=== PATIENT | female | born 1955 | race Caucasian/White ===

== ENCOUNTER → 2019-10-08 15:47 | Outpatient (CLI) | payer BC, SELFPAY ==
--- NOTE | ~2019-10-08 | CT_ITS ---
EXAMINATION: CT chest wo con EXAM DATE: 10/08/2019 16:12 INDICATION: Solitary pulmonary nodule. TECHNIQUE: Spiral CT of the chest without contrast. Axial, coronal and sagittal images were reviewe d. Coronal maximum intensity pixel images of chest reviewed. The dose-length product (DLP) for this examination was 228.49 mGy-cm. The exposure was tailored according to patient size (auto mA exposur e control), and iterative reconstruction (ASIR) was used as additional dose reduction technique. Comp arison is made to prior examination from 03/29/2018. FINDINGS: Previously seen pleural-based right lower lobe opacity has resolved. There is moderate emph ysema. Some linear regions of subsegmental atelectasis. There are no pleural or pericardial effusion s. Tracheobronchial tree is patent. There is no mediastinal, hilar or axillary lymphadenopathy. There is no pneumothorax. Heart normal in size. There is mild left anterior descending coronary arterial calcification, arterial sclerosis. Upper abdomen is unremarkable. There is mild to modera te thoracic spondylosis without osteoblastic or osteolytic lesions identified. IMPRESSION: 1. Resolution of previously seen right lower lobe nodule. 2. Scattered subsegmental atelectasis. 3. Moderate emphysema unchanged. Reviewed, dictated and finalized at location A.
== END ==
PROVIDERS: PCP Family Medicine; Visit Provider Nurse Practitioner Family
DX: R91.1 Solitary pulmonary nodule (principal); Z12.2 Encounter for screening for malignant neoplasm of respiratory organs; Z87.891 Personal history of nicotine dependence; J43.9 Emphysema, unspecified; R91.8 Other nonspecific abnormal finding of lung field
CPT/HCPCS: 71250

== ENCOUNTER 2020-08-13 13:04 | Outpatient (CLI) | payer BC, SELFPAY ==
[2020-08-13 13:44] LABS: Anion Gap 5 mmol/L (8-16); Blood Urea Nitrogen 16 mg/dL (7-17); Calcium 8.7 mg/dL (8.4-10.2); Carbon Dioxide 28 mmol/L (22-30); Chloride 106 mmol/L (98-107); Cholesterol 154 mg/dL (0-200); Estimated Glomerular Filt Rate > 60; Glucose 90 mg/dL (65-105); HDL Direct 57 mg/dL; Potassium 3.8 mmol/L (3.4-5.0); Sodium 139 mmol/L (137-145); Triglycerides 132 mg/dL (<150)
[2020-08-13 13:55] LABS: LDL Cholesterol Direct 55 mg/dL
== END 2020-08-13 13:05 | disposition home or self-care (01) ==
LOC: ANHLAB 13:07
PROVIDERS: PCP Family Medicine; Visit Provider Nurse Practitioner Family
DX: Z13.220 Encounter for screening for lipoid disorders (principal); Z13.1 Encounter for screening for diabetes mellitus; Z13.29 Encounter for screening for other suspected endocrine disorder
CPT/HCPCS: 36415; 80048; 80061; 84443

== ENCOUNTER → 2020-11-02 08:45 | Outpatient (CLI) | payer BC, SELFPAY ==
--- NOTE | ~2020-11-02 | XR_ITS ---
EXAMINATION: XR knee LT 3V EXAM DATE: 11/02/2020 09:11 INDICATION: M25.569 - Pain in unspecified knee, S/P Fall, oumou med knee pain. Initial encounter. TECHNIQUE: Left knee lateral, frontal, sunrise projections. Correlation is made to contralateral knee same date. FINDINGS: No evidence osteochondral defect or joint body in the left knee joint. There is mild to m oderate left knee patellofemoral and medial tibiofemoral compartment primary osteoarthritis. No siza ble joint effusion. There are no acute fractures or dislocations identified. There is no subcutaneou s gas. The soft tissue is unremarkable. There are no radiopaque foreign bodies. IMPRESSION: 1. XR knee LT 3V exam without acute osseous findings. 2. Mild to moderate osteoarthritis. Reviewed, dictated and finalized at location A.
--- NOTE | ~2020-11-02 | XR_ITS ---
EXAMINATION: XR knee RT 3V EXAM DATE: 11/02/2020 09:11 INDICATION: M25.569 - Pain in unspecified knee, s/p fall, oumou med knee pain. Initial encounter. TECHNIQUE: Three projections of the right knee, frontal, lateral and sunrise projections. Correlation is made to contralateral knee same date. FINDINGS: No evidence osteochondral defect or joint body in the right knee joint. There is mild to moderate tricompartmental primary osteoarthritis. No sizable joint effusion. There are no acute fract ures or dislocations identified. There is no subcutaneous gas. Small amount of distal femoral arter ial sclerosis. There are no radiopaque foreign bodies. IMPRESSION: 1. XR knee RT 3V exam without acute osseous findings. 2. Mild to moderate osteoarthritis. Reviewed, dictated and finalized at location A.
== END ==
PROVIDERS: PCP Family Medicine; Visit Provider Nurse Practitioner Family
DX: M17.0 Bilateral primary osteoarthritis of knee (principal)
CPT/HCPCS: 73562

== ENCOUNTER → 2022-03-01 09:51 | Outpatient (CLI) | payer MEDICARE, BC, SELFPAY ==
--- NOTE | ~2022-03-01 | XR_ITS ---
EXAMINATION: XR hip BI 2V w AP pelvis DATE: 03/01/2022 10:17 INDICATION: Unilateral primary osteoarthritis, right hip. TECHNIQUE: An anteroposterior pelvis and 2 views of each hip were obtained. COMPARISON: Right hip radiographs 06/29/2017 FINDINGS: There is lumbar levocurvature and severe spondylosis. No fracture. There is severe right hi p osteoarthritis and moderate left hip osteoarthritis. IMPRESSION: 1. Severe right hip osteoarthritis and moderate left hip osteoarthritis. Reviewed, dictated and finalized at location A.
--- NOTE | ~2022-03-01 | XR_ITS ---
EXAMINATION: XR lumbar spine min 4V DATE: 03/01/2022 10:17 INDICATION: Low back pain. TECHNIQUE: 5 views of lumbar spine were obtained. COMPARISON: None. FINDINGS: There is 7 degrees levocurvature of lumbar spine. There is 7 mm anterolisthesis of L4 on L5 . There are chronic bilateral L4 pars defects. Vertebral body heights are normal. There is severely d ecreased disc height at L4-L5 with likely interbody fusion. There is mildly decreased disc height fro m L1-L2 through L3-L4 and at L5-S1. There is severe facet joint osteoarthritis in lower lumbar spine. IMPRESSION: 1. Chronic bilateral L4 pars defects with grade 1 anterolisthesis of L4 on L5. 2. Severe lumbar spondylosis with likely interbody fusion at L4-L5. Reviewed, dictated and finalized at location A.
== END ==
PROVIDERS: PCP Family Medicine; Visit Provider Nurse Practitioner Family
DX: M47.896 Other spondylosis, lumbar region (principal); Z98.1 Arthrodesis status; M16.0 Bilateral primary osteoarthritis of hip
CPT/HCPCS: 72110; 73521

== ENCOUNTER → 2022-03-28 12:19 | Outpatient (CLI) | payer MEDICARE, BC, SELFPAY ==
--- NOTE | ~2022-03-28 | MR_ITS ---
EXAMINATION: MR hip LT wo con, MR hip RT wo con DATE: 03/28/2022 14:01 INDICATION: Left and right hip pain TECHNIQUE: 1. Magnetic resonance imaging (MRI) of the left hip was performed without intravenous contrast. Seque nces included full-field axial PD-weighted FS FSE and T1-weighted FSE, coronal of the pelvis with PD- weighted FS FSE, T2-weighted FSE and T1-weighted FSE, small field of view of the left hip with axial PD-weighted FS FSE, sagittal PD-weighted FS FSE, coronal PD-weighted FS FSE and coronal T2 weighted FSE. Additional radial T1-weighted FGR oriented orthogonal to the acetabular rim were obtained for e valuation of the labrum. 2. MRI of the right hip was performed without intravenous contrast. Sequences included small field of view of the right hip with axial PD-weighted FS FSE, sagittal PD-weighted FS FSE, coronal PD-weight ed FS FSE and coronal T2 weighted FSE. Additional radial T1-weighted FGR oriented orthogonal to the acetabular rim were obtained for evaluation of the labrum. COMPARISON: None FINDINGS: Bones/labrum/cartilage: No fracture, avascular necrosis or pathologic marrow replacing process. Mild lumbar levocurvature wit h anterior spinal fusion at L4-L5. Moderate spondylosis at remaining unfused lumbar levels. Severe os teoarthritis at the right hip with full/near full-thickness cartilage loss along much of the superior and anterosuperior aspect of the joint space where there is subarticular eburnation and edema-like s ignal change. Chronic degeneration of the right acetabular labrum with heterotopic ossicle formation replacing portions of the anterosuperior and posterosuperior labrum. 1.3 x 1.2 x 1.1 cm posterior par avertebral cyst which appears to erode portion of the posterior nonarticular cortex along the 10:00 p osition of the posterior rim of the right acetabulum. Moderate osteoarthritis at the right hip with additional partial thickness cartilage loss with superior and anterosuperior predominance where it in volves greater than 50% the cartilage thickness. There is additional scattered subarticular edema-lik e signal change superolateral and superomedial aspect of the left acetabulum There is additional scat tered subarticular edema-like signal change. Linear tears at the base of the anterior and posterior l eft acetabular labrum with degeneration of the intervening superolateral labrum. Fluid: Physiologic amount of fluid at the right hip joint space. There is a small left hip joint effusion wi th mild synovitis. Soft tissues: Normal and symmetric muscle bulk and signal in the pelvis and visualized proximal thighs. The iliopso as, gluteal and proximal hamstring tendons are normal. A few sigmoid diverticula without adjacent fro m 3 change to suggest diverticulitis. Limited evaluation of visceral organs of the pelvis is otherwis e unremarkable. No pathologically enlarged pelvic/inguinal lymphadenopathy. IMPRESSION: 1. Severe right and moderate left hip osteoarthritis with associated bilateral labral tears/degenerat ion. 2. Nonspecific small left hip joint effusion. 3. Mild lumbar levocurvature with moderate spondylosis and anterior fusion at L4-L5. Reviewed, dictated and finalized at location A. IMPRESSION: 1. Severe right and moderate left hip osteoarthritis with associated bilateral labral tears/degeneration. 2. Nonspecific small left hip joint effusion. 3. Mild lumbar levocurvature with moderate spondylosis and anterior fusion at L 4-L5.
--- NOTE | ~2022-03-28 | MR_ITS ---
EXAMINATION: MR lumbar spine wo con DATE: 03/28/2022 13:57 INDICATION: Low back pain. TECHNIQUE: Magnetic resonance imaging (MRI) of the lumbar spine was performed without intravenous con trast. Sequences included sagittal T2-weighted FSE, sagittal T2-weighted FS FSE, sagittal T1-weighted FSE, and axial T2-weighted FSE. COMPARISON: Lumbar spine radiographs 03/01/2022 FINDINGS: There is 8 degrees levocurvature of lumbar spine. There are chronic bilateral 4 pars defect s. There is 6 mm anterolisthesis of L4 on L5. There is mild chronic anterior wedging of T12 vertebral body. There is mildly decreased disc height at L1-L2, L2-L3, L3-L4, and L5-S1. There is severely dec reased disc height at L4-L5 with interbody fusion. The distal spinal cord signal intensity is normal. The conus medullaris is at L1. The following disc levels are specifically discussed: L1-L2: The disc is bulging. There is mild bilateral facet joint osteoarthritis. There is mild bilater al neural foraminal stenosis. There is mild central canal stenosis. L2-L3: The disc is bulging. There is severe bilateral facet joint osteoarthritis. There is mild bilat eral neural foraminal stenosis. There is mild central canal stenosis. L3-L4: The disc is bulging. There is severe bilateral facet joint osteoarthritis. There is mild bilat eral neural foraminal stenosis. There is mild central canal stenosis. L4-L5: The disc is bulging. There is mild bilateral facet joint osteoarthritis. There is mild bilater al neural foraminal stenosis. There is mild central canal stenosis. L5-S1: The disc is bulging and has an annular fissure. There is severe bilateral facet joint osteoart hritis. There is mild bilateral neural foraminal stenosis. There is mild central canal stenosis. IMPRESSION: 1. Mild lumbar spondylosis. 2. Interbody fusion at L4-L5. Reviewed, dictated and finalized at location A.
== END ==
PROVIDERS: PCP Family Medicine; Visit Provider Nurse Practitioner Family
DX: M47.896 Other spondylosis, lumbar region (principal); M16.0 Bilateral primary osteoarthritis of hip; Z98.1 Arthrodesis status; M25.452 Effusion, left hip
CPT/HCPCS: 72148; 73721

== ENCOUNTER → 2022-06-14 13:50 | Outpatient (CLI) | payer MEDICARE, BC, SELFPAY ==
--- NOTE | ~2022-06-14 | DEXA_ITS ---
Bone Density Report Name: GABRIELA DILLARD Age: 67 Sex: Female Ethnicity: White Date of : 1955 Indication: postmenopausal; screening for osteoporosis; Referring Provider: Pepper Wen Study: Bone densitometry was performed. Exam Date: June 14, 2022 Accession number: [id number] Bone Density: Region BMD T-score Z-score Classification AP Spine (L1, L2) 1.145 1.5 3.2 Normal Femoral Neck (Left) 0.930 0.7 2.2 Normal Total Hip (Left) 0.959 0.1 1.4 Normal Femoral Neck (Right) 1.032 1.6 3.2 Normal Total Hip (Right) 0.951 0.1 1.3 Normal Total Hip Mean 0.955 0.1 1.4 Normal World Health Organization criteria for BMD impression classify patients as: Normal (T-score at or above -1.0), Osteopenia (T-score between -1.0 and -2.5), or Osteoporosis (T-score at or below -2.5). 10-year Fracture Risk: FRAX not reported because: All T-scores for Spine Total, Hip Total, Femoral Neck at or above -1.0 Previous Exams: Region Exam Age BMD T-score BMD Change BMD Change Date g/cm2 vs Baseline vs Previous Total Hip(Left) 06/14/2022 67 0.959 0.1 -0.022 0.018 03/28/2013 58 0.942 0.0 -0.040* -0.040* 11/23/2006 51 0.981 0.3 Total Hip(Right) 06/14/2022 67 0.951 0.1 0.049 0.050 03/28/2013 58 0.901 -0.3 -0.001 -0.001 11/23/2006 51 0.902 -0.3 *Denotes significance at 95% confidence level, LSC for Total Hip = 0.027 g/cm2 Clinical Information Provided by Patient: Patient maximum height was 62.0 Menopause Age: 52 No regular weight bearing exercise Drinks caffeinated beverages Onset of menses at age 12 Number of children 1 Impression: The patient has normal bone mass. No significant bone loss was observed. Discussion: BONE DENSITY IS ABOVE THE MINIMUM DESIRABLE LEVEL AT ALL SKELETAL SITES TESTED. This patient?s bone mineral density is above the minimum desirable level (T-score -1.0 or better) at all sites measured. The patient should follow a healthful lifestyle (good nutrition with adequate calcium and vitamin D, and appropriate weight-bearing exercise). Follow-Up: Consider repeating this study in 5 years or sooner if there is some new clinical indication. Reported by: KEY on 06/14/2022 2:50:00 PM. Reviewed, dictated and finalized at location AHector SAUNDERS
== END ==
PROVIDERS: PCP Family Medicine; Visit Provider Nurse Practitioner Family
DX: Z78.0 Asymptomatic menopausal state (principal); Z13.820 Encounter for screening for osteoporosis
CPT/HCPCS: 77080

== ENCOUNTER 2022-08-05 01:11 | Day surgery (SDC) | payer MEDICARE, BC, SELFPAY ==
[2022-07-21 10:12] VITALS: BMI 39.8
--- NOTE | 2022-08-04 19:50 | P.HP_ITS ---
History of Present Illness History of Present Illness Consent: Risks, benefits, and alternatives have been discussed and questions answered. Patient agrees to proceed with procedure. Chief complaint: melena, LLQ pain Narrative: Tamra Tobar is a 67 year old female who has seen blood n her stool. Actually a couple weeks ago she had developed a rather severe pain in the left lower quadrant. She began seeing blood in her stools. This lasted a day or 2 and th en subsided. She had been getting some intense physical therapy for back prior to that and she wondered whether that may be an association. Review of Systems Review of Systems: All systems reviewed & are unremarkable except as noted in HPI and below PMFSH Past Medical History Medical History Arthritis of right hip Degenerative arthritis of knee, bilateral Morbid (severe) obesity due to excess calories Family History Family History Father Malignant neoplasm of prostate Bone cancer Mother Hypertension Sibling IBS (irritable bowel syndrome) Hip replacement planned Social History Social History Smoking status: Former smoker Tobacco type: cigarettes Smoking end date: 08/14/14 Alcohol intake: current Alcohol use details: rarely Substance use: current Substance use type: marijuana Last use: gummies occasionally Living arrangements: with family Additional occupation/education comments: [employer]-retires in December Gender identity (if verbalized by the patient): Female Sexual Orientation (if Verbalized by the Patient): Straight or Heterosexual Spiritual care concerns: No Meds Home Medications and Allergies Home Medications Medication Instructions Recorded Confirmed Type omega-3 fatty acids 500 mg capsule 500 mg PO DAILY 12/08/20 08/05/22 History atorvastatin 20 mg tablet See Rx Instructions .Route 12/13/21 08/05/22 Rx .COMPLEX #90 tabs meloxicam 15 mg tablet 15 mg PO DAILY #30 tabs 07/12/22 08/05/22 Rx acetaminophen 650 mg tablet 650 mg PO Q6H PRN Pain 07/21/22 08/05/22 History citalopram 20 mg tablet 30 mg PO DAILY 07/21/22 08/05/22 History lorazepam 0.5 mg tablet 1 mg PO BID 07/21/22 08/05/22 History Allergies Allergy/AdvReac Type Severity Reaction Status Date / Time codeine Allergy Unknown Unknown Verified 08/05/22 07:40 heparin Allergy Unknown Unknown Verified 08/05/22 07:40 Exam Const: General: alert Nutritional Appearance: obese Orientation/consciousness: patient oriented x3 Resp: Auscultation: clear to auscultation bilaterally Cardio: Rhythm: regular rhythm GI: GI Palp: Yes Soft to palpation and No Tenderness to palpation present (GI) Neuro: General: patient oriented x3 Assessment and Plan Assessment and plan (1) Blood in stool: Code(s): K92.1 - Melena Status: Acute Assessment and Plan: Colonoscopy with possible biopsy or polypectomy or cautery or injection of substances.
[2022-08-05 07:41] VITALS: BP 146/94; PULSE 106; RESP 17; TEMP 36.4; O2SAT 98; BMI 40.7
[2022-08-05] MEDS: LACTATED RINGERS 1,000 ML 150 ML IV CONT (07:53)
--- NOTE | 2022-08-05 08:11 | P.PNAN_ITS ---
Anes - Initial Pre Proc Eval Procedure: Operation Date: 08/05/22 09:00 Proposed Procedures p Colonoscopy - Jin Kaufman MD Date/Time: 08/05/22 08:11 Surgeon: Jin Kaufman MD Pre Op Diagnosis: melena, LLQ pain Patient Data Age: 67 Gender: F Height: 1.57 m Weight: 101 kg Last Vital Signs Temp 97.6 F 08/05/22 07:41 Pulse 106 H 08/05/22 07:41 Resp 17 08/05/22 07:41 BP 146/94 H 08/05/22 07:41 Pulse Ox 98 08/05/22 07:41 O2 Del Method Room Air 08/05/22 07:41 Allergies Allergy/AdvReac Type Severity Reaction Status Date / Time codeine Allergy Unknown Unknown Verified 08/05/22 07:40 heparin Allergy Unknown Unknown Verified 08/05/22 07:40 Home Medications Medication Instructions Recorded Confirmed Type omega-3 fatty acids 500 mg capsule 500 mg PO DAILY 12/08/20 08/05/22 History atorvastatin 20 mg tablet See Rx Instructions .Route 12/13/21 08/05/22 Rx .COMPLEX #90 tabs meloxicam 15 mg tablet 15 mg PO DAILY #30 tabs 07/12/22 08/05/22 Rx acetaminophen 650 mg tablet 650 mg PO Q6H PRN Pain 07/21/22 08/05/22 History citalopram 20 mg tablet 30 mg PO DAILY 07/21/22 08/05/22 History lorazepam 0.5 mg tablet 1 mg PO BID 07/21/22 08/05/22 History Patient hx anesthesia problems: none Family hx anesthesia problems: none Results Review: All pre-operative results and documents have been reviewed as part of the pre- operative evaluation. [facility] Past Medical History Medical History Arthritis of right hip Degenerative arthritis of knee, bilateral Morbid (severe) obesity due to excess calories Family History Family History Father Malignant neoplasm of prostate Bone cancer Mother Hypertension Sibling IBS (irritable bowel syndrome) Hip replacement planned Social History Social History Smoking status: Former smoker Tobacco type: cigarettes Smoking end date: 08/14/14 Alcohol intake: current Alcohol use details: rarely Substance use: current Substance use type: marijuana Last use: gummies occasionally Living arrangements: with family Additional occupation/education comments: [employer]-retires in December Gender identity (if verbalized by the patient): Female Sexual Orientation (if Verbalized by the Patient): Straight or Heterosexual Spiritual care concerns: No Anes - Eval Final PreProcedure Day of Procedure 08/05/22 08:11 Patient weight: morbidly obese Heart: regular rate and rhythm Lungs: clear to auscultation Airway: Mallampati scale class II Neurological: alert and oriented Last oral intake: >/= 8 hours ASA classification: III Emergent: no Anesthetic plan: proceed Anesthesia type and monitoring: general GIVS and standard monitoring Results Review: All pre-operative results and documents have been reviewed as part of the pre- operative evaluation. Informed Consent: The patient's anesthetic plan and its attendant risks and benefits were discussed with the patient/family/POA. Questions were solicited and answers provided to the satisfaction of the patient/family/POA.
--- NOTE | 2022-08-05 09:08 | SUR.OPER ---
MADE MD AWARE, SIGMOID COLON POLYP NOT RETRIEVED. NO NEW ORDERS AT THIS TIME.
[2022-08-05 09:13] VITALS: BP 100/77; PULSE 78; RESP 20; O2SAT 94
[2022-08-05 09:23] VITALS: BP 121/76; PULSE 72; RESP 20; O2SAT 94
[2022-08-05 09:33] VITALS: BP 124/65; PULSE 71; RESP 22; O2SAT 98
== END 2022-08-05 09:49 | disposition home or self-care (01) ==
PROVIDERS: PCP Family Medicine; Visit Provider Internal Medicine Gastroenterology
PROC: 0DJD8ZZ Inspection of Lower Intestinal Tract, Via Natural or Artificial Opening Endoscopic (ICD-10-PCS; CPT 45378; principal; 2022-08-05 09:00)
DX: K92.1 Melena (principal); K62.1 Rectal polyp; K63.5 Polyp of colon; K64.8 Other hemorrhoids; K57.30 Diverticulosis of large intestine without perforation or abscess without bleeding; E66.01 Morbid (severe) obesity due to excess calories; Z68.41 Body mass index [BMI] 40.0-44.9, adult; Z87.891 Personal history of nicotine dependence; F12.90 Cannabis use, unspecified, uncomplicated
CPT/HCPCS: 45385; 88305; J2704; J7120

== ENCOUNTER → 2022-08-16 13:24 | Outpatient (CLI) | payer MEDICARE, BC, SELFPAY ==
--- NOTE | ~2022-08-16 | MM_ITS ---
EXAMINATION: MM screening [facility] BI w lev HISTORY: Screening mammogram TECHNIQUE: Craniocaudal and mediolateral oblique 3-D tomosynthesis images were obtained and synthetic 2-D images were generated. CAD analysis was submitted and interpreted. COMPARISON: 06/09/2018, 04/08/2013, 03/28/2013 BREAST PARENCHYMAL COMPOSITION: There are scattered areas of fibroglandular density. FINDINGS: No suspicious mass, calcification, or architectural distortion are identified in either sarmad ast to suggest malignancy. There has been no suspicious interval change. IMPRESSION: 1. No mammographic evidence of malignancy. 2. Recommend routine screening mammography in one year. BI-RADS Category 1: Negative Reviewed, dictated and finalized at location A. HER SCRAPER
== END ==
PROVIDERS: PCP Family Medicine; Visit Provider Nurse Practitioner Family
DX: Z12.31 Encounter for screening mammogram for malignant neoplasm of breast (principal)
CPT/HCPCS: 77063; 77067

== ENCOUNTER 2023-08-22 14:52 | Outpatient (CLI) | payer BC, MEDICARE, SELFPAY ==
--- NOTE | ~2023-08-22 | MM_ITS ---
EXAMINATION: MM screening [facility] [place] BI w lev HISTORY: Screening mammogram TECHNIQUE: Craniocaudal and mediolateral oblique 3-D tomosynthesis images were obtained and synthetic 2-D images were generated. CAD analysis was submitted and interpreted. COMPARISON: 08/16/2022, 06/09/2018, 04/08/2013, 03/28/2013 BREAST PARENCHYMAL COMPOSITION: There are scattered areas of fibroglandular density. FINDINGS: No suspicious mass, calcification, or architectural distortion are identified in either sarmad ast to suggest malignancy. There has been no suspicious interval change. IMPRESSION: 1. No mammographic evidence of malignancy. 2. Recommend routine screening mammography in one year. BI-RADS Category 1: Negative Reviewed, dictated and finalized at location A. RY DECORATOR
== END 2023-08-22 14:53 ==
PROVIDERS: PCP Nurse Practitioner Family; Visit Provider Nurse Practitioner Family
DX: Z12.31 Encounter for screening mammogram for malignant neoplasm of breast (principal)
CPT/HCPCS: 77063; 77067

== ENCOUNTER 2024-11-05 12:21 | Outpatient (CLI) | payer MEDICARE, BC, SELFPAY ==
--- NOTE | ~2024-11-05 | MM_ITS ---
EXAMINATION: MM screening [facility] BI w lev HISTORY: Screening TECHNIQUE: Craniocaudal and mediolateral oblique 3-D tomosynthesis images were obtained and synthetic 2-D images were generated. CAD analysis was submitted and interpreted. COMPARISON: Comparison to multiple prior studies sequentially, with oldest reviewed study dated 05/31. BREAST PARENCHYMAL COMPOSITION: Not dense: There are scattered areas of fibroglandular density. FINDINGS: There is no evidence of suspicious mass, calcification, or architectural distortion to sugg est malignancy in either breast. There has been no suspicious interval change. IMPRESSION: 1. No mammographic evidence of malignancy. 2. Recommend routine screening mammography in one year. BI-RADS Category 1: Negative Reviewed, dictated and finalized at location A.
== END 2024-11-05 12:22 | disposition home or self-care (01) ==
LOC: MICIMG 12:23
PROVIDERS: PCP Nurse Practitioner Family; Visit Provider Nurse Practitioner Family
DX: Z12.31 Encounter for screening mammogram for malignant neoplasm of breast (principal)
CPT/HCPCS: 77063; 77067